=== PATIENT | female | born 1985 | race Caucasian/White ===

== ENCOUNTER → 2021-06-12 | Outpatient (CLI) | payer BC ==
--- NOTE | 2021-06-12 16:03 | KCIC ---
EXAM: Pelvic sonogram. HISTORY: Menorrhagia. TECHNIQUE: Transabdominal and transvaginal sonographic imaging of the pelvis was performed. COMPARISON: None. FINDINGS: The uterus measures 10.6 x 5.2 x 4.6 cm. The endometrial stripe measures 1.1 cm in thicknes s. The ovaries are normal in size and demonstrate normal blood flow. There is a dominant left ovarian follicle/follicular cyst measuring 2.4 cm. There is no pelvic free fluid. IMPRESSION: 1. Physiologic dominant left ovarian follicle/follicular cyst measuring 2.4 cm. 2. Otherwise, unremarkable pelvic sonogram. Electronically signed by: Jasmyne Farmer MD (06/12/2021 4:00 PM) [id number]
== END ==
LOC: KCIC US 15:06
PROVIDERS: ATTEND Family Medicine
DX: N83.02 Follicular cyst of left ovary (principal); N92.0 Excessive and frequent menstruation with regular cycle
CPT/HCPCS: 76830; 76856

== ENCOUNTER → 2021-06-14 | Outpatient (CLI) | payer BC ==
--- NOTE | 2021-06-14 10:16 | RAD ---
INDICATION: Reason: Generalized ABD Pain / Spl. Instructions: / History: COMPARISON: None. TECHNIQUE: Grayscale and color ultrasound images obtained through the abdomen. FINDINGS: Pancreas: Limited visualization secondary to overlying structures obscuring. Liver: Mildly echogenic Gallbladder: Removed Common Bile Duct: 4 mm Right Kidney: No hydronephrosis. Left Kidney: No hydronephrosis. Spleen: Unremarkable. Aorta/IVC: Only partially seen secondary to overlying bowel gas. IMPRESSION: * Postcholecystectomy without common bile duct dilation. * No hydronephrosis. Electronically signed by: Niranjan Turner MD (06/14/2021 10:13 AM) [id number]
== END ==
LOC: US 09:03
PROVIDERS: ATTEND Family Medicine
DX: R10.84 Generalized abdominal pain (principal); R10.2 Pelvic and perineal pain; Z90.49 Acquired absence of other specified parts of digestive tract
CPT/HCPCS: 76700